=== PATIENT | female | born 1965 | race Caucasian/White ===

== ENCOUNTER 2017-03-23 16:51 | Emergency (ER) | payer SELFPAY ==
[~2017-03-23] VITALS: Ht 157.5 cm; Wt 63.5 kg
[2017-03-23 16:59] VITALS: BP_SYST 109
[2017-03-23 18:15] VITALS: BP_SYST 109
== END 2017-03-23 18:15 | disposition home or self-care (01) ==
LOC: SED 16:51
DX: S93.601A Unspecified sprain of right foot, initial encounter (principal); W01.10XA Fall on same level from slipping, tripping and stumbling with subsequent striking against unspecified object, initial encounter; Y93.89 Activity, other specified; Y92.511 Restaurant or cafe as the place of occurrence of the external cause; Y99.8 Other external cause status
CPT/HCPCS: 73590-TC; 99284